=== PATIENT | male | born 1970 | race Caucasian/White ===

== ENCOUNTER 2025-10-09 18:51 | Emergency (ER) | payer MEDICARE ==
--- NOTE | 2025-10-09 19:35 | ERPHSYRPT ---
- History of Present Illness Time Seen by Provider: 10/09/25 19:35 Source: patient Exam Limitations: no limitations Physician History: This is a right-handed 55-year-old white male patient who was moving a large decorative wine glass when the top broke unexpectedly cutting the dorsal aspect of his index finger. Patient tetanus status is up-to-date. Timing/Duration: today Quality: painful Severity: mild Location: hands (Right index finger dorsal aspect) Associated Symptoms: denies symptoms Allergies/Adverse Reactions: Penicillins Allergy (Verified 10/09/25 19:31) Sulfa (Sulfonamide Antibiotics) Allergy (Verified 10/09/25 19:31) Anaphylactic Reaction Home Medications: Escitalopram Oxalate 20 mg PO DAILY 10/09/25 [History] Gabapentin [Neurontin ] 600 mg PO BID 10/09/25 [History] Meloxicam 7.5 mg PO DAILY 10/09/25 [History] Travel Risk - International Travel Have you traveled outside of the country in past 3 weeks: No - Emerging Infectious Disease Are you exhibiting symptoms associated with any current EIDs: No - Review of Systems Constitutional: No Symptoms Eyes: No Symptoms Ears, Nose, & Throat: No Symptoms Respiratory: No Symptoms Cardiac: No Symptoms Abdominal/Gastrointestinal: No Symptoms Genitourinary Symptoms: No Symptoms Musculoskeletal: Injury Skin: Other (Skin laceration dorsal aspect right index finger) Neurological: No Symptoms Psychological: No Symptoms Endocrine: No Symptoms Hematologic/Lymphatic: No Symptoms Immunological/Allergic: No Symptoms All Other Systems: Reviewed and Negative - Past Medical History Pertinent Past Medical History: Yes - Nursing Vital Signs Nursing Vital Signs: Initial Vital Signs Temperature 97.2 F 10/09/25 19:31 Pulse Rate 87 10/09/25 19:31 Respiratory Rate 20 10/09/25 19:31 Blood Pressure 128/78 10/09/25 19:31 O2 Sat by Pulse Oximetry 95 10/09/25 19:31 Pain Scale Pain Intensity 0 - Physical Exam General Appearance: no apparent distress, alert Eye Exam: PERRL/EOMI, eyes nml inspection Ears, Nose, Throat Exam: normal ENT inspection, moist mucous membranes Neck Exam: normal inspection, non-tender, supple, full range of motion Respiratory Exam: airway intact, No chest tenderness, No respiratory distress Gastrointestinal/Abdomen Exam: No tenderness Rectal Exam: not done Back Exam: normal inspection, normal range of motion, No CVA tenderness Extremity Exam: normal range of motion, pelvis stable, lacerations (Curvilinear 1.5 cm skin laceration dorsal aspect right index finger), other (Neurovascularly intact. Tendons are intact. No foreign body present) Neurologic Exam: alert, oriented x 3, cooperative, assistant gm of content & delivery II-XII nml as tested, normal mood/affect, nml cerebellar function, nml station & gait, sensation nml Skin Exam: normal color, warm, dry, laceration (See above's extremity section) Lymphatic Exam: No adenopathy SpO2 Interpretation: normal O2 Delivery: Room Air Procedures - Laceration/Wound Repair Right Dorsal Finger Time of Procedure: 20:05 Wound Location: Right, hand (Dorsal aspect index finger) Wound Length (cm): 1.5 Wound's Depth, Shape: superficial, linear (Curvilinear) Wound Explored: clean (Wound explored to the base in a bloodless field and no foreign body present) Irrigated: Yes Hibiclens Prep: Yes Anesthesia: 1% Lidocaine Volume Anesthetic (ccs): 3 Wound Repaired With: sutures Suture Size/Type: 3-0, prolene Number of Sutures: 3 Layer Closure?: No - Course Nursing assessment & vital signs reviewed: Yes Ordered Tests: Medication Summary Generic Name Dose Route Start Last Admin Trade Name Freq PRN Reason Stop Dose Admin Bacitracin Zinc 0.9 each 10/09/25 20:13 Bacitracin Packet 1 Each Pckt TP 10/09/25 20:14 STAT ONE Discontinued Medications Generic Name Dose Route Start Last Admin Trade Name Freq PRN Reason Stop Dose Admin Lidocaine HCl 5 ml 10/09/25 19:43 10/09/25 19:47 Lidocaine Hcl 1% 20 Ml Mdv 20 Ml Ml IJ 10/09/25 19:44 5 ml STAT ONE Administration Lidocaine HCl Confirm 10/09/25 19:45 Lidocaine Hcl 1% 20 Ml Mdv 20 Ml Ml Administered 10/09/25 19:46 Dose 5 ml .ROUTE .STK-MED ONE - Progress Progress: improved Progress Note: 10/09/25 20:21 My medical decision making and the assignment of low complexity of this patient's medical issue today is based on review of the patient's past medical history, reviewed patient's medication list, reviewed patient drug allergy list, history as well as and physical findings on examination. The workup in this patient does not necessitate radiographic or laboratory studies. Differential diagnosis includes but is not limited to contusion right index finger, laceration of skin right index finger, skin abrasion right index finger Counseled pt/family regarding: diagnosis, need for follow-up Medical Desision Making - Diagnostic Testing Diagnostic test were ordered, analyzed, and reviewed by me: No - Risk of complications Low Risk: Low risk of morbidity from additional dx testing or treatment - Departure Departure Disposition: Home Clinical Impression: Laceration of right index finger Condition: Stable Critical Care Time: No Referrals: DOCTOR,NO FAMILY [Primary Care Provider, UNKNOWN] - Follow up/PCP as directed Additional Instructions: Keep current pressure dressing in place for 24 hours. At approximately 8 AM on 10/10/2025, take the dressing down and rinse the site off with warm soapy water. Blot dry use a dog hair clipper. After drying, apply thin layer of antibiotic oin tment and reapply bandage. Do this each day. Suture removal in 8 days. You may use Tylenol and ibuprofen for pain control.
[2025-10-09 19:42] VITALS: RESP 20; TEMP 97.2; O2SAT 95
[2025-10-09] MEDS ORDERED: XYLOCAINE 1% HCL 20 ML MDV ONE (19:45)
[2025-10-09] MEDS: XYLOCAINE 1% HCL 20 ML MDV IJ ONE (19:47)
[2025-10-09] MEDS ORDERED: BACIGUENT PACKET ONE (20:13)
[2025-10-09] MEDS: BACIGUENT PACKET TP ONE (20:18)
[2025-10-09 20:20] VITALS: BP 114/87; PULSE 85
== END 2025-10-09 20:30 | disposition home or self-care (01) ==
LOC: ED 18:51
DX: S61.210A Laceration without foreign body of right index finger without damage to nail, initial encounter (principal); W25.XXXA Contact with sharp glass, initial encounter; Z79.899 Other long term (current) drug therapy